=== PATIENT | male | born 1990 | race African-American/Black ===

== ENCOUNTER 2017-12-15 14:14 | Emergency (ER) | payer OTHER ==
[~2017-12-15] VITALS: Ht 162.6 cm; Wt 68.0 kg
[2017-12-15 14:14] VITALS: BP 114/74
[2017-12-15] MEDS ORDERED: HYDROCODONE/APAP 5/325MG 1 EACH TABLET PO ONE (14:30)
[2017-12-15] MEDS ORDERED: HYDROCODONE/APAP 5/325MG 1 EACH TABLET ONE (14:34)
== END 2017-12-15 15:37 | disposition home or self-care (01) ==
LOC: ER 14:15
DX: T87.89 Other complications of amputation stump (principal); Z89.512 Acquired absence of left leg below knee; Z89.511 Acquired absence of right leg below knee
CPT/HCPCS: 73564; 99284; A4606; Z7610